=== PATIENT | female | born 1970 | race Caucasian/White ===

== ENCOUNTER 2018-08-18 06:34 | Day surgery (SDC) | payer BC ==
[~2018-08-18 06:34] MED LIST: LACTATED RINGER'S 1,000 ML IV*
[2018-08-18] MEDS ORDERED: MIDAZOLAM 1 MG/ML 2 ML INJ ×2 (08:30→09:02)
[2018-08-18] MEDS ORDERED: FENTAnyl 50 MCG/ML VIAL (08:30)
[2018-08-18] MEDS ORDERED: PROPOFOL 20 ML (08:30)
[2018-08-18] MEDS ORDERED: CEFAZOLIN 1 GM INJ (08:30)
[2018-08-18] MEDS ORDERED: HYDROmorphONE 1 MG/5 ML IV SYRINGE IV (09:30)
[2018-08-18] MEDS ORDERED: EPHEDrine SULFATE 50 MG/5 ML SYG IV (09:30)
[2018-08-18] MEDS ORDERED: FENTAnyl 50 MCG/ML VIAL IV (09:30)
[2018-08-18] MEDS ORDERED: METOCLOPRAMIDE 10 MG INJ IV (09:30)
[2018-08-18] MEDS ORDERED: DIPHENHYDRAMINE 50 MG INJ IV (09:30)
[2018-08-18] MEDS ORDERED: hydrALAzine 20 MG INJ IV (09:30)
[2018-08-18] MEDS ORDERED: LABETALOL HCL 20MG INJ IV (09:30)
[2018-08-18] MEDS ORDERED: ONDANSETRON 4 MG INJ (09:45)
[2018-08-18] MEDS ORDERED: KETOROLAC 30 MG INJ (09:45)
[2018-08-18] MEDS ORDERED: DEXAMETHASONE 4 MG/ML 5 ML INJ (09:45)
[2018-08-18] MEDS ORDERED: METOCLOPRAMIDE 10 MG INJ (09:45)
[2018-08-18] MEDS: FENTAnyl 50 MCG/ML VIAL IV ×2 (10:22→10:37)
[2018-08-18] MEDS: ONDANSETRON 4 MG INJ IV (10:23)
[2018-08-18] MEDS: HYDROmorphONE 1 MG/5 ML IV SYRINGE IV ×2 (10:40→10:57)
[2018-08-18] MEDS: MEPERIDINE 25 MG INJ IV (11:05)
[2018-08-18] MEDS: OXYCODONE/ACETAMINOPHEN (5/325) TAB PO (11:38)
== END 2018-08-18 13:00 | disposition home or self-care (01) ==
LOC: SDS 06:34
DX: N92.1 Excessive and frequent menstruation with irregular cycle (principal); D25.9 Leiomyoma of uterus, unspecified; R93.89 Abnormal findings on diagnostic imaging of other specified body structures
CPT/HCPCS: 58563